=== PATIENT | male | born 1985 | race Caucasian/White ===

== ENCOUNTER 2016-06-29 16:50 | Emergency (ER) | payer MEDICAID ==
[2016-06-29 17:21] VITALS: PULSE 66; TEMP 97.4; BMI 32.3
[2016-06-29 18:35] VITALS: BP 125/58
--- NOTE | 2016-06-29 19:09 | DIRPT ---
CLINICAL DATA: A hammer fell approximately 20 feet and struck the patient in the back of the head and neck. Pain and bruising. Initial encounter. EXAM: CT HEAD WITHOUT CONTRAST CT CERVICAL SPINE WITHOUT CONTRAST TECHNIQUE: Multidetector CT imaging of the head and cervical spine was performed following the standard protocol without intravenous contrast. Multiplanar CT image reconstructions of the cervical spine were also generated. COMPARISON: Head CT scan 12/31/2011. FINDINGS: CT HEAD FINDINGS The brain appears normal without hemorrhage, infarct, mass lesion, mass effect, midline shift or abnormal extra-axial fluid collection. No hydrocephalus or pneumocephalus. Imaged paranasal sinuses and mastoid air cells are clear. The calvarium is intact. 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 No fracture or malalignment is identified. Intervertebral disc space height is maintained. The facet joints appear normal. Lung apices are clear. IMPRESSION: Negative head and cervical spine CT scans. Electronically Signed By: Delio Clifford M.D. On: 06/29/2016 19:06
--- NOTE | 2016-06-29 19:16 | EDPRACDOC ---
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 Pt states hit in R posterior neck. C/o headache and neck pain , dizziness. Denies LOC, vision changes, n/v cp, sob, abd pain, loss of control bowel or bladder. Pain Severity: Moderate Mechanism: Blunt trauma Circumstances: Reports: Work-related Associated signs and symptoms: Reports: Head injury ED Past Medical History - History Reviewed Yes Nurses notes reviewed and agree except as marked - Patient Medical History Psychological History: Reports: Depression - Social Medical History Smoking Status: Heavy tobacco smoker (5 or more cigarettes/day or daily pipe/ cigar) ETOH: None Substance Abuse: None EDM Review of Systems - Review of Systems Constitutional: No Symptoms Reported Eyes: No Symptoms Reported. negative: Redness, Blurred Vision, Double Vision, Discharge, Pain, Light Sensitive, Photophobia Respiratory: No Symptoms Reported. negative: Cough, Brassy Cough, Barky Cough, Shortness of Breath, Wheezing, Hemoptysis Cardiovascular: No Symptoms Reported. negative: Chest Pain, Palpitations, Syncope, Edema, Orthopnea, PND, Skin Mottling, Cyanosis Gastrointestinal: No Symptoms Reported. negative: Pain, Constipation, Nausea, Vomiting, Diarrhea, Melena, Formula Intolerance Genitourinary: No Symptoms Reported. negative: Dysuria, Hematuria, Frequency, Discharge, Bleeding, Testicular Pain, Neurological: Dizziness, Headache Musculoskeletal: Neck Integumentary: No Symptoms Reported. negative: Itching, Rash, Bruising, Wound Allergic/Immunologic: No Symptoms Reported. negative: Hives, Itching Hematologic: No Symptoms Reported. negative: Lymphadenopathy, Easy Bruising, Easy Bleeding Psychiatric: No Symptoms Reported. negative: Anxiety, Depression, Hallucinations, Insomnia, Suicidal - Physical Exam Constitutional: Alert Oriented to: Time, Person, Place Last recorded Vital Signs: Last Vital Signs Temp 97.4 F L 06/29/16 17:17 Pulse 66 06/29/16 18:32 Resp 20 06/29/16 18:32 BP 125/58 L 06/29/16 18:32 Pulse Ox 97 06/29/16 18:32 Oxygen Pulse Oxygen Saturation 97 O2 Device Room Air Oxygen Flow Rate Fraction of Inspired Oxygen ( FIO2) - HEENT Head: Normal ( normocephalic) Eye Exam: Normal (PERRL, EOMI, Sclera white) Oropharynx: Normal (Pharynx:Moist without exudate,Gums-no swelling) Tympanic Membrane: Normal ENT EAC: Normal TMJ: Normal Nose: No Symptoms Reported (septum midline) Neck: Midline, Paraspinal Tenderness, Tender, Other (Abrasion to R posterior neck) - Respiratory/Cardiovascular Respiratory: Normal - CTA (BBS clear to auscultation without adventitious sounds ) Cardiovascular: Normal (RRR without murmur, gallop or rub) - GI Auscultation: Normal (NABS) Palpation: Normal (Soft,No rebound or guarding, non distended) Tenderness: Non tender - Musculoskeletal Back: Normal (Non-Tender) Extremities: Normal (Normal tone, Pulses 2+ No cyanosis or edema, FROM) - Integumentary Skin: Normal, Warm, Dry Lymphatics: Normal (no adenopathy) - Neurologic Memory Impaired: Normal Motor Function: Normal (Normal tone, Pulses 2+ No cyanosis or edema, FROM) Mood Description: Normal Perception: Normal - Differential Diagnosis Cervical Muscle Spasm, Cervical Sprain/Strain, Cervical Spine Fracture - Diagnostic Imaging Head Image interpreted by: Radiologist IMPRESSION: Negative head and cervical spine CT scans. Decision Time to Discharge: 19:17 - Departure Disposition: Home Condition: Good Final Diagnosis: Cervical sprain Qualifiers: Encounter type: initial encounter Qualified Code(s): S13.9XXA - Sprain of joints and ligaments of unspecified parts of neck, initial encounter Instructions: Cervical Sprain (ED) Education/Counseling Given To: Patient Education/Counseling Given Regarding: Diagnosis, Treatment, Follow Up Referrals: None,No Provider [Primary Care Provider] - One Week Igor Babin II, MD [Staff Physician] - One Week Prescriptions: New Cyclobenzaprine HCl [Flexeril] 10 mg PO TID PRN #15 tablet PRN Reason: Pain Oxycodone HCl/Acetaminophen [Percocet 5-325 mg Tablet] 1 tab PO Q6H PRN #20 tab PRN Reason: Pain Additional Instructions: Return for worse or different symptoms.
== END 2016-06-29 19:34 | disposition home or self-care (01) ==
LOC: ED 16:50 → EDMC 19:34
DX: S13.9XXA Sprain of joints and ligaments of unspecified parts of neck, initial encounter (principal); W31.89XA Contact with other specified machinery, initial encounter; Y93.9 Activity, unspecified; R51 Headache
CPT/HCPCS: 70450; 72125; 99282